=== PATIENT | female | born 1965 | race Asian ===

== ENCOUNTER → 2016-08-29 | Outpatient (CLI) | payer OTHER ==
--- NOTE | ~2016-08-29 | CR150 ---
[facility] A Service of [facility] & [facility] RADIOLOGY TEXT RESULTS PATIENT: JOSE ANGEL HAWTHORNE LOCATION: [facility] : 63 UNIT #: [id number] AGE: [address]: LATRICE Montgomery APRN SEX: F ORDER DR: [id number] [facility] [address] [facility]. [place], [place] [address] [id number] O MR#: [id number] Acc #: [id number] NAME: JOSE ANGEL HAWTHORNE : 1965 SEX: F STUDY DATE/TIME: 08/29/2016 16:00 UNIT: [facility] ROOM: STUDY DESCRIPTION: CR Hip Min 2 Views Lt Ordering Physician: Latrice Otero Aprn MEDICAL IMAGING REPORT This report is preliminary unless electronic signature is present EXAM 2 views of the left hip HISTORY Hip pain for 2-3 weeks. FINDINGS No acute fracture or subluxation of the left hip is identified. Patient really has minimal degenerative change. No aggressive osseous abnormalities are seen. IMPRESSION No acute disease. Dictated by... Aretha Moore M.D. THIS IS AN ELECTRONICALLY VERIFIED REPORT Aretha Moore M.D. at 08/30/2016 7:44 AM AFF/pcl TD: 08/29/2016 22:28 JOB #: [id number] MEDICAL IMAGING REPORT COPY
--- NOTE | ~2016-08-29 | CR243 ---
[facility] A Service of [facility] RADIOLOGY TEXT RESULTS PATIENT: JOSE ANGEL HAWTHORNE LOCATION: [facility] : 63 UNIT #: [id number] AGE: [address]: LATRICE Montgomery, JEANETTE SEX: F ORDER DR: [id number] [address] [address] [id number] O MR#: [id number] Acc #: [id number] NAME: JOSE ANGEL HAWTHORNE : 1965 SEX: F STUDY DATE/TIME: 08/29/2016 16:02 UNIT: [facility] ROOM: STUDY DESCRIPTION: CR Thoracic Spine 3 Views Ordering Physician: Latrice Otero Aprn MEDICAL IMAGING REPORT This report is preliminary unless electronic signature is present EXAM Thoracic spine 08/29/2016 HISTORY 51-year-old female with upper back pain for 4 years. No specific injury. COMPARISON None. FINDINGS 3 views of the thoracic spine demonstrate no acute fracture or subluxation. Vertebral body heights and alignment are normally maintained. Cervicothoracic junction is unremarkable. Disc spaces appear normally maintained. Minimal multilevel anterior osteophyte formation. IMPRESSION 1. No acute thoracic spine injury. 2. Minimal multilevel anterior osteophyte formation. Disc spaces appear within normal limits. Dictated by... Elkin Knutson M.D. THIS IS AN ELECTRONICALLY VERIFIED REPORT Elkin Knutson M.D. at 08/31/2016 3:57 PM JKB/pcl TD: 08/29/2016 23:11 JOB #: [id number] [facility] A Service of [facility] RADIOLOGY TEXT RESULTS PATIENT: JOSE ANGEL HAWTHORNE LOCATION: [facility] : 63 UNIT #: [id number] AGE: [address]: LATRICE Montgomery, ORDER CHECKER PACKER PROCESSER SEX: F ORDER DR: MEDICAL IMAGING REPORT COPY
--- NOTE | ~2016-08-29 | CR151 ---
[facility] A Service of [facility] & [facility] RADIOLOGY TEXT RESULTS PATIENT: JOSE ANGEL HAWTHORNE LOCATION: [facility] : 63 UNIT #: [id number] AGE: [address]: LATRICE Montgomery APRN SEX: F ORDER DR: [id number] [facility] [address] [facility]. [place], [place] [address] [id number] O MR#: [id number] Acc #: [id number] NAME: JOSE ANGEL HAWTHORNE : 1965 SEX: F STUDY DATE/TIME: 08/29/2016 15:57 UNIT: [facility] ROOM: STUDY DESCRIPTION: CR Hip Min 2 Views Rt Ordering Physician: Latrice Otero Aprn MEDICAL IMAGING REPORT This report is preliminary unless electronic signature is present EXAM 2 views right hip HISTORY Hip pain for 2-3 weeks. FINDINGS No acute fracture or subluxation of the right hip is identified. Patient really has minimal degenerative change. No aggressive osseous abnormalities are seen. IMPRESSION No acute disease. Dictated by... Aretha Moore M.D. THIS IS AN ELECTRONICALLY VERIFIED REPORT Aretha Moore M.D. at 08/30/2016 7:44 AM AFF/pcl TD: 08/29/2016 22:25 JOB #: [id number] MEDICAL IMAGING REPORT COPY
--- NOTE | ~2016-08-29 | CR181 ---
[facility] A Service of [facility] RADIOLOGY TEXT RESULTS PATIENT: JOSE ANGEL HAWTHORNE LOCATION: [facility] : 63 UNIT #: [id number] AGE: [address]: LATRICE Montgomery APRN SEX: F ORDER DR: [id number] [facility] [address] [facility]. [place], [place] [address] [id number] O MR#: [id number] Acc #: [id number] NAME: JOSE ANGEL HAWTHORNE : 1965 SEX: F STUDY DATE/TIME: 08/29/2016 16:02 UNIT: [facility] ROOM: STUDY DESCRIPTION: CR Lumbar Spine 2 or 3 Views Attending Physician: Latrice Otero Aprn Referring Physician: Latrice Otero Aprn Ordering Physician: Latrice Otero Aprn Primary Care Physician: Latrice Otero Aprn MEDICAL IMAGING REPORT This report is preliminary unless electronic signature is present EXAM Lumbar spine, 3 views HISTORY 51-year-old female, low back pain for 4 years. FINDINGS AP, lateral and cone-lateral views of the lumbar spine demonstrates no fracture. No spondylolysis or spondylolisthesis. There is loss of the normal lumbar lordosis and this could be positional but can be associated with straight back syndrome as a cause of back pain. Correlate for functional abnormality. Minimal endplate sclerosis but no significant disc space narrowing. Posterior elements unremarkable. Visualized SI joints and soft tissues appear normal. IMPRESSION Loss of the normal lumbar lordosis could be positional in nature but can be associated with straight back syndrome as a source of back pain. Correlate clinically for functional abnormality. Dictated by... Tk Tomlinson M.D. THIS IS AN ELECTRONICALLY VERIFIED REPORT Tk Tomlinson M.D. at 08/31/2016 7:21 AM ERLINDA/carolyn TD: 08/29/2016 23:17 JOB #: [id number] MEDICAL IMAGING REPORT COPY
== END | disposition home or self-care (01) ==
LOC: CRAD 15:36
DX: M25.551 Pain in right hip (principal); M54.5 Low back pain; M25.78 Osteophyte, vertebrae
CPT/HCPCS: 72072; 72100; 73502